=== PATIENT | female | born 1945 | race Caucasian/White ===

== ENCOUNTER 2016-07-28 20:54 | Observation (INO) ==
[2016-07-28] MEDS ORDERED: 0.9 % Sodium Chloride 1,000 ML IVC ONE (21:16)
[2016-07-28 21:44] LABS: Basophils % 0.2 %; Eosinophils % 0.2 %; Hematocrit 45.7 % (35.3-44.9); Hemoglobin 14.8 g/dL (11.5-15.4); Immature Granulocytes % 0.5 % (0-4); Lymphocytes # 1.3 K/mcL (0.6-4.6); Lymphocytes % 9.9 %; Mean Corpuscular HGB Conc 32.4 g/dL (31.6-35.5); Mean Corpuscular Hemoglobin 28.2 pg (28.0-33.3); Mean Platelet Volume 9.2 fL (9.4-12.4); Monocytes # 1.1 K/mcL (0.0-1.3); Monocytes % 8.6 %; Neutrophils # 10.5 K/mcL (1.6-8.9); Platelet Count 135 K/mcL (140-400); Red Blood Count 5.25 M/mcL (3.82-4.97); Segmented Neutrophils % 80.6 %
--- NOTE | 2016-07-28 21:57 | Emergency Department Note ---
Disposition Clinical Impression: Hematochezia, Colitis, Abdominal aneurysm Disposition: Admitted As Inpatient Referrals: Unassigned,Provider [Non-Partnered Physician] - Forms: ED Satisfaction Letter General Adult HPI - General Chief complaint: ED GI Bleed Stated complaint: rectum bleeding Time Seen by Provider: 07/28/16 21:07 Source: patient Limitations: no limitations Nursing Notes Reviewed: Yes Vital Signs Reviewed: Yes - History of Present Illness Pain Scale: 9 - Related Data Home Medications Medication Instructions Recorded Confirmed Diltiazem HCl [Cardizem] 60 mg PO BID 02/13/15 07/28/16 Lisinopril [Zestril] 20 mg PO QPM 02/13/15 07/28/16 Metoprolol Succinate 100 mg PO QPM 02/13/15 07/28/16 clonazePAM [Klonopin] 2 mg PO HS 02/13/15 07/28/16 Amitriptyline [Elavil] 20 - 30 mg PO HS 07/28/16 07/28/16 Aspirin Enteric Coated [Aspirin EC] 81 mg PO DAILY 07/28/16 07/28/16 Docusate [Colace] 100 mg PO DAILY PRN 07/28/16 07/28/16 HYDROcodone/Acet 10/325 mg [[place] 2 tab PO BID PRN 07/28/16 07/28/16 10-325 mg] Lactose-Reduced Food [Ensure Plus] 1 bottle PO BID 07/28/16 07/28/16 Allergies Allergy/AdvReac Type Severity Reaction Status Date / Time codeine Allergy Agitated Verified 07/28/16 20:59 egg Allergy Hives Verified 07/28/16 20:59 bacitracin AdvReac Rash Verified 07/28/16 20:59 [From Neosporin Plus] gabapentin AdvReac Vomiting Verified 07/28/16 20:59 Neomycin AdvReac Rash Verified 07/28/16 20:59 [From Neosporin Plus] polymyxin B AdvReac Rash Verified 07/28/16 20:59 [From Neosporin Plus] Pramoxine AdvReac Rash Verified 07/28/16 20:59 [From Neosporin Plus] Past Medical History - Past Medical History Medical history: Reports: aortic aneurysm, COPD, coronary artery disease, hypertension, peripheral artery disease, other Surgical history: Reports: other Psychiatric history: Reports: anxiety 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 history - Social History Smoking Status: Current every day smoker Smokeless Tobacco Status: No Alcohol use: Reports: none Drug use: Reports: none Physical Exam - General Limitations: no limitations General appearance: alert Course Vital Signs Temperature 98.4 F 07/28/16 20:59 Pulse Rate 97 07/28/16 20:59 Respiratory Rate 20 07/28/16 20:59 Blood Pressure 205/115 07/28/16 20:59 O2 Sat by Pulse Oximetry 91 07/28/16 20:59 Temperature 98.4 F 07/28/16 20:59 Pulse Rate 99 07/29/16 00:04 Respiratory Rate 14 07/29/16 00:04 Blood Pressure 179/98 07/29/16 00:04 O2 Sat by Pulse Oximetry 95 07/29/16 00:04 Oxygen Delivery Oxygen Delivery Room Air Medical Decision Making - MDM Narrative Medical decision making narrative: I examined this patient and my medical decision-making was reviewed with the UNDERWRITING SUPPORT SPECIALIST/PA/Advanced Practice Nurse/Resident Physician. I agree with the documented findings, disposition and treatment plan as described except to the extent set forth below. Patient was seen today by Dr. Garcia and myself, I agree with his evaluation and management plan, I supervised the care of the patient throughout the stay. She has had a long history of constipation secondary to opiates. She has been constipated a lot point where she had actually digitally disimpact herself. She states that last night she had a bowel movement that felt like she was "passing a cactus. And she noted blood on the stool and it continued today she had some cramping in her abnormal little bit of nausea but no vomiting. She has never had a history of bowel obstruction but she has had multiple surgeries which are vascular nature of her abdomen. She had a large bowel movement here which had gross blood in it. No signs of hemorrhoids. Waiting on labs we will CT her abdomen raw silk grader of fluids and try to get her feeling better most likely she will need admission. She is in agreement with this plan. 2212 hrs.: Patient had an EKG showed a sinus rhythm, rate 95, QRS is 114, QTc is 43, has interventricular conduction delay but no signs of acute ischemia no ectopy, compared this with an old EKG that was done earlier in this year and shows no changes except for rate. 2237 hrs.: Patient's labs are back she has not anemic. Were waiting on her CT of her abdomen. She is in agreement with this plan. Abdomen/Pelvis CT 07/28/16 21:16 IMPRESSION: 1. Circumferential wall thickening with submucosal edema of the majority of the sigmoid and ascending colon. The remaining colon is remarkable. Findings are nonspecific, could represent an infectious, inflammatory or ischemic colitis. 2. Moderate left renal pelviectasis is likely secondary to markedly distended bladder. 3. 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 RECOMMENDATIONS: Managing Abdominal Aortic Aneurysms 2.6-2.9 cm: 5 year follow up. 3.0-3.4 cm: 3 year follow up 3.5-3.9 cm: 1 year follow up. 4.0-4.4 cm: 1 year follow up. Recommend vascular consultation. 4.5-5.4 cm: 6 month follow up. Recommend vascular consultation. Greater than or equal to 5.5 cm: Referral to vascular surgeon. Reference: Saima et al. The care of patients with an abdominal aortic aneurysm: The Society of Vascular Surgery practice guidelines. Journal of Vascular Surgery. Vol 50, Number 85. Tonio et al. Managing Incidental Findings on Abdominal and Pelvic CT and MRI, Part 2: White Paper of the ACR Incidental Findings Committee II on Vascular Findings. J Am Keturah Radiol 2013;10:789-794 D/ / Socrates Mcintosh MD / Socrates Mcintosh MD Interpreting Provider: Socrates Mcintosh MD 2350 hrs.: Patient has colitis on CT nothing that acute. With her GI bleeding and her previous history would like to bring her into the hospital, she is in agreement. She is stable at this time whenever typed and screened. Her critical care time excluding any separately billable procedures is 40 minutes. Paging hospitals for admission. 0004 hours: Hospitalist accepts patient for admission. Patient's in agreement with the plan. She is stable at this time. - Lab Data Result diagrams: 07/28/16 21:36 07/28/16 21:36 Lab Results 07/28/16 07/28/16 07/28/16 Range/Units 21:36 21:36 21:36 WBC 13.0 H (4.3-11.1) K/mcL RBC 5.25 H (3.82-4.97) M/mcL Hgb 14.8 (11.5-15.4) g/dL Hct 45.7 H (35.3-44.9) % MCV 87.0 (83.0-100.0) fL MCH 28.2 (28.0-33.3) pg MCHC 32.4 (31.6-35.5) g/dL RDW 15.0 H (11.5-14.5) % Plt Count 135 L (140-400) K/mcL MPV 9.2 L (9.4-12.4) fL Immature Gran % 0.5 (0-4) % Seg Neutrophils % 80.6 % Lymphocytes % 9.9 % Monocytes % 8.6 % Eosinophils % 0.2 % Basophils % 0.2 % Neutrophils # 10.5 H (1.6-8.9) K/mcL Lymphocytes # 1.3 (0.6-4.6) K/mcL Monocytes # 1.1 (0.0-1.3) K/mcL Eosinophils # 0.0 (0.0-0.6) K/mcL Basophils # 0.0 (0.0-0.2) K/mcL Sodium 140 (136-145) mEq/L Potassium 3.5 (3.5-4.5) mEq/L Chloride 100 (98-109) mEq/L Carbon Dioxide 31 H (19-29) mEq/L BUN 25 H (7-20) mg/dL Creatinine 1.12 H (0.57-1.11) mg/dL Est GFR ( Amer) 58 L (> 60) Est GFR (Non-Af Amer) 48 L (> 60) BUN/Creatinine Ratio 22 (6-26) Glucose 92 (70-99) mg/dL Calculated Osmolality 294 (280-300) Calcium 9.5 (8.6-10.8) mg/dL Total Bilirubin 0.5 (0.2-1.2) mg/dL Direct Bilirubin 0.2 (0.0-0.5) mg/dL Indirect Bilirubin 0.3 (0.0-1.2) mg/dL AST 20 (5-34) Units/L ALT 24 (0-55) Units/L Alkaline Phosphatase 88 (38-126) Units/L Serum Total Protein 6.8 (6.0-8.3) g/dL Albumin 3.3 L (3.5-5.0) g/dL Globulin 3.5 (2.4-3.5) g/dL Albumin/Globulin Ratio 0.9 L (1.1-2.2) Blood Type O POSITIVE Antibody Screen NEGATIVE
[2016-07-28 21:58] LABS: Calcium 9.5 mg/dL (8.6-10.8); Potassium 3.5 mEq/L (3.5-4.5)
[2016-07-28 22:10] LABS: Albumin 3.3 g/dL (3.5-5.0); Albumin/Globulin Ratio 0.9 (1.1-2.2); Bilirubin,Direct 0.2 mg/dL (0.0-0.5); Bilirubin,Indirect 0.3 mg/dL (0.0-1.2); Bilirubin,Total 0.5 mg/dL (0.2-1.2); Globulin 3.5 g/dL (2.4-3.5); Total Protein 6.8 g/dL (6.0-8.3)
--- NOTE | 2016-07-28 23:45 | Emergency Department Note ---
Disposition Clinical Impression: Hematochezia, Colitis, Abdominal aneurysm Disposition: Admitted As Inpatient Referrals: Unassigned,Provider [Non-Partnered Physician] - Forms: ED Satisfaction Letter GI Bleed HPI - General Chief complaint: ED GI Bleed Stated complaint: rectum bleeding Time Seen by Provider: 07/28/16 21:07 Source: patient Limitations: no limitations Nursing Notes Reviewed: Yes Vital Signs Reviewed: Yes - History of Present Illness HPI Narrative: Ms. Blanco, a 71yo female, presents from home via EMS with concerns regarding rectal bleeding. Patient had a hard bowel movement last night. This afternoon , she had bright red blood in her bowel movement. Initially described as completely blood without stool. Subsequently had loose stool with blood intermixed. Associated with nausea, chills, abdominal cramping. Patient has no recent antibiotic use, no recent travel. PMH: Abdominal aneurysm-surgically corrected. Hypertension, COPD. Medications do not include any anticoagulant. Antiplatelet = aspirin 81 mg by mouth daily. ROS: Positive: Hematochezia, chills, abdominal cramping Negative: Fever, dyspnea, chest pains, diaphoresis, dysuria - Related Data Home Medications Medication Instructions Recorded Confirmed Diltiazem HCl [Cardizem] 60 mg PO BID 02/13/15 07/28/16 Lisinopril [Zestril] 20 mg PO QPM 02/13/15 07/28/16 Metoprolol Succinate 100 mg PO QPM 02/13/15 07/28/16 clonazePAM [Klonopin] 2 mg PO HS 02/13/15 07/28/16 Amitriptyline [Elavil] 20 - 30 mg PO HS 07/28/16 07/28/16 Aspirin Enteric Coated [Aspirin EC] 81 mg PO DAILY 07/28/16 07/28/16 Docusate [Colace] 100 mg PO DAILY PRN 07/28/16 07/28/16 HYDROcodone/Acet 10/325 mg [[place] 2 tab PO BID PRN 07/28/16 07/28/16 10-325 mg] Lactose-Reduced Food [Ensure Plus] 1 bottle PO BID 07/28/16 07/28/16 Allergies Allergy/AdvReac Type Severity Reaction Status Date / Time codeine Allergy Agitated Verified 07/28/16 20:59 egg Allergy Hives Verified 07/28/16 20:59 bacitracin AdvReac Rash Verified 07/28/16 20:59 [From Neosporin Plus] gabapentin AdvReac Vomiting Verified 07/28/16 20:59 Neomycin AdvReac Rash Verified 07/28/16 20:59 [From Neosporin Plus] polymyxin B AdvReac Rash Verified 07/28/16 20:59 [From Neosporin Plus] Pramoxine AdvReac Rash Verified 07/28/16 20:59 [From Neosporin Plus] All systems ED: reviewed and negative except as stated. 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 She appears frail and cachectic. HEENT: No facial asymmetry. Head is normocephalic and atraumatic. PERRLA, EOMI. trachea midline. Cardiovascular: Heart regular rate and rhythm without clicks, rubs, gallops, or murmurs. No JVD. PMI nondisplaced. No pedal edema. Bilateral radial and posterior tibial pulses 2/4. Respiratory: Symmetric chest rise with good respiratory effort. Bilateral breath sounds are clear without wheezing, crackles, or rhonchi. Abdomen: Bowel sounds present normoactive x-4 quadrants. Abdomen is soft, nondistended, and nontender. Rectal: No external hemorrhoids. Manoj blood visible in patient's stool. FOBT positive. Psych: Patient's affect is appropriate for situation. - General Limitations: no limitations General appearance: alert Course Course Narrative: Patient has a history of chronic opiod constipation resistant to multiple medications. She has a painless large hard bowel movement after which she had hematochezia. Initial concern is focused on GI bleed. Upper GI bleed unlikely as blood is grossly red. Does not clinically smell to be C. difficile. Patient 's vital signs are stable and she is in no acute distress this time. CT abdomen and pelvis concerning for colitis. Also shows a abdominal aneurysm which is known to the patient. Laboratory work shows mild leukocytosis. No anemia or less likely drainages. No evidence of elevated liver or pancreatic enzymes. We will admit the patient to the hospitalist for continued evaluation and management. 00:05 Spoke with admitting hospitalist, Dr. Mccall, who agrees to accept the patient. Ms. Blanco remains stable and comfortable. Vital Signs Temperature 98.4 F 07/28/16 20:59 Pulse Rate 97 07/28/16 20:59 Respiratory Rate 20 07/28/16 20:59 Blood Pressure 205/115 07/28/16 20:59 O2 Sat by Pulse Oximetry 91 07/28/16 20:59 Temperature 98.4 F 07/28/16 20:59 Pulse Rate 97 07/28/16 20:59 Respiratory Rate 20 07/28/16 20:59 Blood Pressure 205/115 07/28/16 20:59 O2 Sat by Pulse Oximetry 95 07/28/16 22:14 Oxygen Delivery Oxygen Delivery Room Air GI Bleed - Lab Data Result diagrams: 07/28/16 21:36 07/28/16 21:36 Lab Results 07/28/16 07/28/16 07/28/16 Range/Units 21:36 21:36 21:36 WBC 13.0 H (4.3-11.1) K/mcL RBC 5.25 H (3.82-4.97) M/mcL Hgb 14.8 (11.5-15.4) g/dL Hct 45.7 H (35.3-44.9) % MCV 87.0 (83.0-100.0) fL MCH 28.2 (28.0-33.3) pg MCHC 32.4 (31.6-35.5) g/dL RDW 15.0 H (11.5-14.5) % Plt Count 135 L (140-400) K/mcL MPV 9.2 L (9.4-12.4) fL Immature Gran % 0.5 (0-4) % Seg Neutrophils % 80.6 % Lymphocytes % 9.9 % Monocytes % 8.6 % Eosinophils % 0.2 % Basophils % 0.2 % Neutrophils # 10.5 H (1.6-8.9) K/mcL Lymphocytes # 1.3 (0.6-4.6) K/mcL Monocytes # 1.1 (0.0-1.3) K/mcL Eosinophils # 0.0 (0.0-0.6) K/mcL Basophils # 0.0 (0.0-0.2) K/mcL Sodium 140 (136-145) mEq/L Potassium 3.5 (3.5-4.5) mEq/L Chloride 100 (98-109) mEq/L Carbon Dioxide 31 H (19-29) mEq/L BUN 25 H (7-20) mg/dL Creatinine 1.12 H (0.57-1.11) mg/dL Est GFR ( Amer) 58 L (> 60) Est GFR (Non-Af Amer) 48 L (> 60) BUN/Creatinine Ratio 22 (6-26) Glucose 92 (70-99) mg/dL Calculated Osmolality 294 (280-300) Calcium 9.5 (8.6-10.8) mg/dL Total Bilirubin 0.5 (0.2-1.2) mg/dL Direct Bilirubin 0.2 (0.0-0.5) mg/dL Indirect Bilirubin 0.3 (0.0-1.2) mg/dL AST 20 (5-34) Units/L ALT 24 (0-55) Units/L Alkaline Phosphatase 88 (38-126) Units/L Serum Total Protein 6.8 (6.0-8.3) g/dL Albumin 3.3 L (3.5-5.0) g/dL Globulin 3.5 (2.4-3.5) g/dL Albumin/Globulin Ratio 0.9 L (1.1-2.2) Blood Type O POSITIVE Antibody Screen NEGATIVE
[2016-07-29] MEDS ORDERED: Naloxone 0.4 MG/ML INJ IVP PRN (01:50)
[2016-07-29] MEDS ORDERED: *HR* HYDROcodone/Acet 10/325 mg TABLET PO PRN (01:56)
--- NOTE | 2016-07-29 01:59 | Internal Med History&Physical ---
Date of Encounter: 07/29/16 Time of Encounter: 01:58 Assessment and Plan (1) Hematochezia Current visit: Yes Status: Acute Possibly related to colitis versus diverticular bleed. Hold aspirin. Monitor H& H. GI consult for further advice. (2) Colitis Current visit: Yes Status: Acute Will check lactate level, c.diff toxin, stool culture. Consider antibiotics ( however pt does not have symptoms of diarrhea) (3) Abdominal aneurysm Current visit: Yes Status: Chronic Monitor (4) Hypertension Current visit: Yes Status: Chronic Resume home dose of antihypertensives Qualifiers: Hypertension type: essential hypertension Qualified Code(s): I10 - Essential (primary) hypertension (5) Nicotine dependence Current visit: Yes Status: Chronic Counseled for smoking cessation. Nicotine patches Qualifiers: Nicotine product type: cigarettes Substance use status: unspecified nicotine-induced disorder Qualified Code(s): F17.219 - Nicotine dependence, cigarettes, with unspecified nicotine-induced disorders Internal Medicine - H&P: HPI Chief complaint: Rectal bleeding Admitted From: Emergency Dept Plans for Post Hospital Care: Home History of present illness: Ms. Blanco is a 71 year old female With past medical h/o aortic aneurysm, COPD, coronary artery disease, hypertension, peripheral artery disease. Pt reports that she has been constipated, and tool a laxative 2 days ago. Yesterday she had a large bowel movement, followed by soft BM and later had bright red blood in the BM. She is not sure about clots. She denies melena, hematemesis, nausea, vomiting. She reports some cramping abdominal pain, associated with the bowel movements. She denies shortness of breath, chest pain, fever, chills, dizziness , lightheadedness. She was evaluated in the emergency department and rectal exam showed no hemorrhoids and rosa maria blood was visible in pts stool. She is admitted to the hospitalist service for further management. Pt reports that she did not have prior colonoscopies (she says that she cant have it because of her prior surgeries on the abdomen.) Past Med Surg Social Fam HX - Past Medical History Medical history: aortic aneurysm, COPD, coronary artery disease, hypertension, peripheral artery disease, other Psychiatric history: anxiety - Past Surgical History Surgical History: appendectomy, orthopedic, other, other, vascular surgery - Social History Smoking Status: Current every day smoker Packs per day: 3/4 Smokeless Tobacco Status: No Alcohol use: none Drug use: none - Family History Mother Age: 88 Hx Family Cancer: Yes Hx Family GI Disorders: Yes Father Age: 92 Hx Family Cardiac Disorders: Yes Internal Medicine - H&P: Meds Diltiazem HCl [Cardizem] 60 mg PO BID 02/13/15 [History] Lisinopril [Zestril] 20 mg PO QPM 02/13/15 [History] Metoprolol Succinate 100 mg PO QPM 02/13/15 [History] clonazePAM [Klonopin] 2 mg PO HS 02/13/15 [History] Amitriptyline [Elavil] 20 - 30 mg PO HS 07/28/16 [History] Aspirin Enteric Coated [Aspirin EC] 81 mg PO DAILY 07/28/16 [History] Docusate [Colace] 100 mg PO DAILY PRN 07/28/16 [History] HYDROcodone/Acet 10/325 mg [[place] 10-325 mg] 2 tab PO BID PRN 07/28/16 [History] Lactose-Reduced Food [Ensure Plus] 1 bottle PO BID 07/28/16 [History] Allergies codeine Allergy (Verified 07/28/16 20:59) Agitated egg Allergy (Verified 07/28/16 20:59) Hives bacitracin [From Neosporin Plus] Adverse Reaction (Verified 07/28/16 20:59) Rash gabapentin Adverse Reaction (Verified 07/28/16 20:59) Vomiting Neomycin [From Neosporin Plus] Adverse Reaction (Verified 07/28/16 20:59) Rash polymyxin B [From Neosporin Plus] Adverse Reaction (Verified 07/28/16 20:59) Rash Pramoxine [From Neosporin Plus] Adverse Reaction (Verified 07/28/16 20:59) Rash All Systems PM: A 10-system review of systems was performed and is negative for pertinent findings except as documented above in the HPI. - Constitutional Vitals: Temp Pulse Resp BP Pulse Ox 99.3 F 102 18 192/108 93 07/29/16 01:04 07/29/16 01:04 07/29/16 01:04 07/29/16 01:04 07/29/16 01:04 Exam: General: Not in acute distress at the time of my evaluation HEENT: Oral mucosa is moist. No conjunctival palor or scleral icterus Neck: No obvious neck swellings Lungs: Clear to auscultation Cardiac: Regular rate and rhythm. Abdomen: Soft, non tender. Bowel sounds present Genitourinary: No pastor catheter Neurological: Alert and oriented. No gross localizing deficits Psych: Not aggressive or agitated Extremities: no significant leg edema Skin: No generalized rash Internal Med - H&P Results - Labs CBC & Chem 7: 07/29/16 02:53 07/29/16 02:53 - Impressions ITS Impressions Abdomen/Pelvis CT 07/28/16 21:16 IMPRESSION: 1. Circumferential wall thickening with submucosal edema of the majority of the sigmoid and ascending colon. The remaining colon is unremarkable. Findings are nonspecific, could represent an infectious, inflammatory or ischemic colitis. 2. Moderate left renal pelviectasis is likely secondary to markedly distended bladder. 3. Stable chronic abdominal, including ectasia of the descending thoracic aorta of 2.6 cm and fusiform aneurysmal dilatation of the right internal common iliac artery of 3 cm. RECOMMENDATIONS: Managing Abdominal Aortic Aneurysms 2.6-2.9 cm: 5 year follow up. 3.0-3.4 cm: 3 year follow up 3.5-3.9 cm: 1 year follow up. 4.0-4.4 cm: 1 year follow up. Recommend vascular consultation. 4.5-5.4 cm: 6 month follow up. Recommend vascular consultation. Greater than or equal to 5.5 cm: Referral to vascular surgeon. Reference: Saima et al. The care of patients with an abdominal aortic aneurysm: The Society of Vascular Surgery practice guidelines. Journal of Vascular Surgery. Vol 50, Number 85. Tonio et al. Managing Incidental Findings on Abdominal and Pelvic CT and MRI, Part 2: White Paper of the ACR Incidental Findings Committee II on Vascular Findings. J Am Keturah Radiol 2013;10:789-794 D/ / 07/29/2016 07:08:24 Socrates Mcintosh MD / nano Interpreting Provider: Socrates Mcintosh MD
[2016-07-29] MEDS ORDERED: 0.9 % Sodium Chloride 1,000 ML IVC SCH (02:00)
[2016-07-29] MEDS: clonazePAM 1 MG TABLET PO SCH ×2 (02:10→21:41)
[2016-07-29] MEDS: Metoprolol XL (24 HR) Succ 50 MG TAB.ER.24H PO SCH ×2 (02:10→17:48)
[2016-07-29] MEDS: Lisinopril 20 MG TABLET PO SCH ×2 (02:11→17:48)
[2016-07-29 03:00] LABS: Basophils % 0.1 %; Eosinophils % 0.1 %; Hematocrit 42.5 % (35.3-44.9); Immature Granulocytes % 0.4 % (0-4); Lymphocytes # 1.1 K/mcL (0.6-4.6); Lymphocytes % 8.2 %; Mean Corpuscular HGB Conc 32.9 g/dL (31.6-35.5); Mean Corpuscular Hemoglobin 28.4 pg (28.0-33.3); Mean Corpuscular Volume 86.2 fL (83.0-100.0); Mean Platelet Volume 9.2 fL (9.4-12.4); Monocytes # 0.9 K/mcL (0.0-1.3); Neutrophils # 11.3 K/mcL (1.6-8.9); Platelet Count 125 K/mcL (140-400); Red Blood Count 4.93 M/mcL (3.82-4.97); Red Cell Distribution Width 15.1 % (11.5-14.5); Segmented Neutrophils % 84.2 %
[2016-07-29 03:06] LABS: INR 1.2; Prothrombin Time 12.7 Seconds (9.4-12.1)
[2016-07-29 03:08] LABS: Activated Partial Thrombo Time 27.6 Seconds (26.0-36.0)
[2016-07-29 03:13] LABS: BUN/Creatinine Ratio 20 (6-26); Blood Urea Nitrogen 19 mg/dL (7-20); Calcium 8.7 mg/dL (8.6-10.8); Carbon Dioxide 27 mEq/L (19-29); Chloride 103 mEq/L (98-109); Glucose 126 mg/dL (70-99); Osmolality,Calculated 292 (280-300); Potassium 3.5 mEq/L (3.5-4.5); Sodium 139 mEq/L (136-145); eGFR For African Americans > 60 (> 60); eGFR For Non-African Americans 57 (> 60)
[2016-07-29] MEDS: dilTIAZem HCl 60 MG TABLET PO SCH ×2 (08:35→21:40)
[2016-07-29 10:40] LABS: Hematocrit 41.3 % (35.3-44.9); Hemoglobin 13.4 g/dL (11.5-15.4)
[2016-07-29] MEDS: Sennosides/Docusate Sodium TABLET PO SCH ×2 (11:20→21:40)
[2016-07-29] MEDS: Nicotine 21 MG PATCH.TD24 TD SCH (11:21)
--- NOTE | 2016-07-29 11:46 | Gastroenterology Consult Note ---
<Danilo Paula - Last Filed: 07/29/16 11:43> Date of Encounter: 07/29/16 Time of Encounter: 11:05 - Assessment and plan (1) Colitis Current Visit: Yes Status: Acute Assessment and plan: CT A/P with circumferential wall thickening with submucosal edema the majority of the sigmoid and descending colon, the remaining colon is unremarkable. These findings are nonspecific and could represent an infectious, inflammatory, or ischemic colitis. Check stool studies. Plan for colonoscopy in 6-8 weeks as outpatient. Continue symptomatic treatment. (2) Hematochezia Current Visit: Yes Status: Acute Assessment and plan: Could be due to colitis. Plan for colonoscopy in 6-8 weeks as outpatient. (3) Abdominal aneurysm Current Visit: Yes Status: Chronic - Time Spent With Patient Total time spent is greater than 50% in coordination of care (as documented) at patient's floor/unit and/or counseling patient: GI History of Present Illness - Data of Consult Patient: new to practice Consult date: 07/29/16 Requesting Physician: Mitchell Zelaya - Consult Narrative Reason for consult: hematochezia, colitis History of present illness: Ms. Blanco is a 71 year old female with PMHx of aortic aneurysm, chronic opioid constipation, COPD, CAD, HTN, peripheral artery disease who presented to the ED with concerns regarding rectal bleeding. The day before admission she had a hard bowel movement and then the day of admission she noticed bright red blood in her bowel movement. Initially she described this as completely blood without stool. This was associated with nausea and abdominal cramping. She denied fever , SOB, chest pain, melena. CT A/P concerning for colitis. Procedures: EGD 07/11/2011 Dr. Mancera: Gastritis, duodenitis NSAIDs: ASA Anticoagulation: None Past Med Surg Social Fam HX - Past Medical History Medical history: aortic aneurysm, COPD, coronary artery disease, hypertension, peripheral artery disease, other Psychiatric history: anxiety - Past Surgical History Surgical History: appendectomy, orthopedic, other, other, vascular surgery - Social History Smoking Status: Current every day smoker Packs per day: 3/4 Smokeless Tobacco Status: No Alcohol use: none Drug use: none - Family History Mother Age: 88 Hx Family Cancer: Yes Hx Family GI Disorders: Yes Father Age: 92 Hx Family Cardiac Disorders: Yes - Gastrointestinal Gastrointestinal: Present: as per HPI - Constitutional Constitutional: as per HPI - EENT Eyes: as per HPI Ears: Present: as per HPI Nose, mouth and throat: Present: as per HPI - Cardiovascular Cardiovascular ROS: Present: as per HPI - Respiratory Respiratory IM: Present: as per HPI - Genitourinary Genitourinary: Absent: change in color, Urinary frequency - Neurological ROS Neurological GI: Present: as per HPI - Hematologic/Lymphatic Hematologic/Lymphatic pediatric: Present: as per HPI - Musculoskeletal Musculoskeletal ROS GI: Present: as per HPI - Integumentary Integumentary GI: Present: as per HPI - Psychiatric ROS Psychiatric GI: Present: as per HPI - Endocrine Endocrine IM: Present: as per HPI - Constitutional Vitals: Temp Pulse Resp BP Pulse Ox 99.1 F 91 18 145/66 93 07/29/16 10:45 07/29/16 10:45 07/29/16 10:45 07/29/16 10:45 07/29/16 10:45 General appearance: Present: cooperative, A&O X 3, no acute distress, answers questions appropriately - Head Head exam: Present: atraumatic, normocephalic - Eye Eye exam: Present: normal appearance, sclera anicteric - ENT ENT exam: Present: mucous membranes dry - Neck Neck exam general surgery: Present: normal inspection, trachea midline - Respiratory Respiratory exam: Present: decreased breath sounds, CTAB. Absent: rales, rhonchi - Cardiovascular Cardiovascular exam: Present: RRR, +S1, +S2 - GI/Abdominal GI/Abdominal exam: Present: soft, tenderness (Left sided pain with palpation), no peritoneal signs. Absent: distended, firm, guarding - Rectal Rectal exam: Present: deferred - Extremities Exam Extremities exam: Present: warm - Neurological Exam Neurological exam: Present: no focal deficits - Psychiatric Psychiatric exam: Present: normal affect, normal mood - Skin Skin exam: Present: dry, intact, normal color, warm Results - Labs CBC & Chem 7: 07/29/16 10:21 07/29/16 02:53 Labs: Last Result Calcium 8.7 mg/dL (8.6-10.8) 07/29/16 02:53 Entire Visit Hgb 13.4 g/dL (11.5-15.4) 07/29/16 10:21 Hct 41.3 % (35.3-44.9) 07/29/16 10:21 PT 12.7 Seconds (9.4-12.1) H 07/29/16 02:53 Total Bilirubin 0.5 mg/dL (0.2-1.2) 07/28/16 21:36 AST 20 Units/L (5-34) 07/28/16 21:36 ALT 24 Units/L (0-55) 07/28/16 21:36 - ABG ABG results: PT/INR, D-dimer PT 12.7 Seconds (9.4-12.1) H 07/29/16 02:53 Consult Discharge Plan - Plan Referrals: Angel Martinez MD [Primary Care Provider] - 08/08/16 1:20 pm <Fadi Ontiveros - Last Filed: 07/29/16 15:13> Date of Encounter: 07/29/16 - Time Spent With Patient Total time spent is greater than 50% in coordination of care (as documented) at patient's floor/unit and/or counseling patient: GI History of Present Illness - Data of Consult Requesting Physician: Mitchell Zelaya - Consult Narrative History of present illness: Ms. Blanco is a 71 year old female - Constitutional Vitals: Temp Pulse Resp BP Pulse Ox 99.1 F 91 18 145/66 93 07/29/16 10:45 07/29/16 10:45 07/29/16 10:45 07/29/16 10:45 07/29/16 10:45 Results - Labs CBC & Chem 7: 07/29/16 10:21 07/29/16 02:53 Labs: Last Result Calcium 8.7 mg/dL (8.6-10.8) 07/29/16 02:53 Entire Visit Hgb 13.4 g/dL (11.5-15.4) 07/29/16 10:21 Hct 41.3 % (35.3-44.9) 07/29/16 10:21 PT 12.7 Seconds (9.4-12.1) H 07/29/16 02:53 Total Bilirubin 0.5 mg/dL (0.2-1.2) 07/28/16 21:36 AST 20 Units/L (5-34) 07/28/16 21:36 ALT 24 Units/L (0-55) 07/28/16 21:36 - ABG ABG results: PT/INR, D-dimer PT 12.7 Seconds (9.4-12.1) H 07/29/16 02:53 - Attending Attestation I examined this patient and my medical decision-making was reviewed with the POST SPLITTER/PA/Advanced Practice Nurse/Resident Physician. I agree with the documented findings, disposition and treatment plan as described except to the extent set forth below. Pt finding concerning for ischemic colitis. Supportive care. colon out pt 6-8 weeks
[2016-07-29] MEDS: 0.9 % Sodium Chloride 1,000 ML IVC SCH ×2 (12:10→15:30)
[2016-07-29] MEDS: MetroNIDAZOLE 500 MG/100 ML 500 MG/100 ML BAG IVPB SCH ×2 (15:32→23:57)
[2016-07-29 15:59] LABS: Hematocrit 41.7 % (35.3-44.9); Hemoglobin 13.2 g/dL (11.5-15.4)
[2016-07-29 21:39] LABS: Hematocrit 38.4 % (35.3-44.9); Hemoglobin 12.6 g/dL (11.5-15.4)
[2016-07-30 04:27] LABS: Adenovirus F 40/41 PCR Not detected (Not detect); Astrovirus PCR Not detected (Not detect); C.difficile Toxin A/B by PCR Not detected (Not detect); Campylobacter by PCR Not detected (Not detect); Cryptosporidium by PCR Not detected (Not detect); Cyclospora cayetanensis PCR Not detected (Not detect); E. coli O157 by PCR Not detected (Not detect); Entamoeba histolytica PCR Not detected (Not detect); Enteroaggregative E.coli(EAEC) Not detected (Not detect); Enteropathogenic E.coli(EPEC) ***DETECTED*** (Not detect); Enterotoxigenic E.coli (ETEC) Not detected (Not detect); Giardia lamblia PCR Not detected (Not detect); Norovirus GI/GII PCR Not detected (Not detect); Plesiomonas shigelloides PCR Not detected (Not detect); Rotavirus A PCR Not detected (Not detect); Salmonella PCR Not detected (Not detect); Sapovirus PCR Not detected (Not detect); Shig/EnteroinvasiveE coli EIEC Not detected (Not detect); Shigalike tox-prod E coli STEC Not detected (Not detect); Vibrio PCR Not detected (Not detect); Vibrio cholerae PCR Not detected (Not detect); Yersinia enterocolitica PCR Not detected (Not detect)
[2016-07-30] MEDS: 0.9 % Sodium Chloride 1,000 ML IVC SCH (04:48)
[2016-07-30 06:21] LABS: Basophils % 0.2 %; Eosinophils # 0.1 K/mcL (0.0-0.6); Eosinophils % 1.2 %; Hematocrit 39.8 % (35.3-44.9); Hemoglobin 12.4 g/dL (11.5-15.4); Immature Granulocytes % 0.4 % (0-4); Lymphocytes # 0.9 K/mcL (0.6-4.6); Lymphocytes % 10.6 %; Mean Corpuscular HGB Conc 31.2 g/dL (31.6-35.5); Mean Corpuscular Hemoglobin 27.7 pg (28.0-33.3); Mean Platelet Volume 9.4 fL (9.4-12.4); Monocytes # 0.5 K/mcL (0.0-1.3); Monocytes % 5.5 %; Neutrophils # 6.8 K/mcL (1.6-8.9); Platelet Count 106 K/mcL (140-400); Red Blood Count 4.47 M/mcL (3.82-4.97); Segmented Neutrophils % 82.1 %
[2016-07-30 06:36] LABS: BUN/Creatinine Ratio 18 (6-26); Blood Urea Nitrogen 15 mg/dL (7-20); Calcium 8.4 mg/dL (8.6-10.8); Carbon Dioxide 25 mEq/L (19-29); Chloride 108 mEq/L (98-109); Glucose 66 mg/dL (70-99); Osmolality,Calculated 289 (280-300); Potassium 3.3 mEq/L (3.5-4.5); Sodium 140 mEq/L (136-145); eGFR For African Americans > 60 (> 60); eGFR For Non-African Americans > 60 (> 60)
[2016-07-30] MEDS: dilTIAZem HCl 60 MG TABLET PO SCH (07:41)
[2016-07-30] MEDS: Sennosides/Docusate Sodium TABLET PO SCH (07:41)
[2016-07-30] MEDS: MetroNIDAZOLE 500 MG/100 ML 500 MG/100 ML BAG IVPB SCH (07:41)
[2016-07-30] MEDS: Nicotine 21 MG PATCH.TD24 TD SCH (07:42)
[2016-07-30] MEDS ORDERED: Potassium Chloride Elixir 20 MEQ/15 ML UDC PO SCH (09:00)
--- NOTE | 2016-07-30 10:18 | Electrocardiograph Report ---
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
--- NOTE | 2016-07-30 10:58 | Discharge Summary ---
Date of Encounter: 07/30/16 Time of Encounter: 10:55 - Discharge Diagnosis (1) Colitis Priority: Primary Status: Acute (2) Hematochezia Priority: Secondary Status: Acute (3) Abdominal aneurysm Priority: Secondary Status: Chronic (4) Hypertension Priority: Secondary Status: Chronic Qualifiers: Hypertension type: essential hypertension Qualified Code(s): I10 - Essential (primary) hypertension - Discharge Medications Prescriptions: Ciprofloxacin [Cipro] 500 mg PO BID #8 tablet Sennosides/Docusate Sodium [Senna Plus] 1 each PO BID PRN #60 tablet PRN Reason: Constipation Home Medications: Diltiazem HCl [Cardizem] 60 mg PO BID 02/13/15 [History] Lisinopril [Zestril] 20 mg PO QPM 02/13/15 [History] Metoprolol Succinate 100 mg PO QPM 02/13/15 [History] clonazePAM [Klonopin] 2 mg PO HS 02/13/15 [History] Amitriptyline [Elavil] 20 - 30 mg PO HS 07/28/16 [History] Aspirin Enteric Coated [Aspirin EC] 81 mg PO DAILY 07/28/16 [History] HYDROcodone/Acet 10/325 mg [[place] 10-325 mg] 2 tab PO BID PRN 07/28/16 [History] Lactose-Reduced Food [Ensure Plus] 1 bottle PO BID 07/28/16 [History] Ciprofloxacin [Cipro] 500 mg PO BID #8 tablet 07/30/16 [Rx] Sennosides/Docusate Sodium [Senna Plus] 1 each PO BID PRN #60 tablet 07/30/16 [ Rx] Allergies/Adverse Reactions: Allergies codeine Allergy (Verified 07/28/16 20:59) Agitated egg Allergy (Verified 07/28/16 20:59) Hives bacitracin [From Neosporin Plus] Adverse Reaction (Verified 07/28/16 20:59) Rash gabapentin Adverse Reaction (Verified 07/28/16 20:59) Vomiting Neomycin [From Neosporin Plus] Adverse Reaction (Verified 07/28/16 20:59) Rash polymyxin B [From Neosporin Plus] Adverse Reaction (Verified 07/28/16 20:59) Rash Pramoxine [From Neosporin Plus] Adverse Reaction (Verified 07/28/16 20:59) Rash Date of admission: 07/29/16 00:15 Primary care physician: Angel Martinez MD Consults: 07/29/16 01:59 Consult to Gastroenterology [CONS] Routine Consulting Provider: Yong Nguyen Reason for Consult: Hematochizia; colitis Call Completed: No Discharging clinician: Mitchell Zelaya Anticipated date of discharge: 07/30/16 - Patient Status Disposition: Home, Self-Care Condition: Fair Functional capacity at discharge: independent ambulation Overall status at discharge: patient is back to baseline - Discharge Instructions Instructions: Chronic Hypertension (DC) Follow Up With: Angel Martinez MD [Primary Care Provider] - 08/08/16 1:20 pm Fadi Ontiveros MD [Partnered Physician] - - Diet and Activity Activity: resume usual activities as tolerated Diet: advance to your usual diet Interval History: Ms. Blanco is a 71 year old female with PMHx of aortic aneurysm, chronic opioid constipation, COPD, CAD, HTN, peripheral artery disease who presented to the ED with concerns regarding rectal bleeding. The day before admission she had a hard bowel movement and then the day of admission she noticed bright red blood in her bowel movement. This was associated with nausea and abdominal cramping. She denied fever, SOB, chest pain, melena. CT A/P concerning for colitis. Procedures: EGD 07/11/2011 Dr. Mancera: Gastritis, duodenitis NSAIDs: ASA Anticoagulation: None GI was consulted, she did not require any BT. her H/H is stable. her stool is positive for EPEC, GI recommended starting her on cipro for 5 days she has no more bleeding from her rectum, she is being dc today in stable condition and will f/u with GI in 2weeks. Hospital course: Ms. Blanco is a 71 year old female Time spent discussing smoking cessation with patient: more than 10 minutes - Time Spent with Patient Total time spent providing and/or coordinating discharge services: Greater than 30 minutes - Constitutional Vitals: Temp Pulse Resp BP Pulse Ox 97.8 F 81 18 193/96 94 07/30/16 07:31 07/30/16 07:31 07/30/16 07:31 07/30/16 07:31 07/30/16 08:11 General appearance: Present: A&O X 3, no acute distress Exam: - Head Head exam: Present: atraumatic, normocephalic - Eye Eye exam: Present: normal appearance, sclera anicteric - ENT ENT exam: Present: mucous membranes dry - Neck Neck exam general surgery: Present: normal inspection, trachea midline - Respiratory Respiratory exam: Present: decreased breath sounds, CTAB. Absent: rales, rhonchi - Cardiovascular Cardiovascular exam: Present: RRR, +S1, +S2 - GI/Abdominal GI/Abdominal exam: Present: soft, tenderness (Left sided pain with palpation), no peritoneal signs. Absent: distended, firm, guarding - Rectal Rectal exam: Present: deferred - Extremities Exam Extremities exam: Present: warm - Neurological Exam Neurological exam: Present: no focal deficits - Psychiatric Psychiatric exam: Present: normal affect, normal mood - Skin Skin exam: Present: dry, intact, normal color, warm
[2016-07-30 12:08] VITALS: BP 167/86
== END 2016-07-30 13:05 | disposition home or self-care (01) ==
LOC: 3ANU 20:54 → EMEROO 20:54 → 3ANU 07-29 00:37
PROVIDERS: ADMIT Internal Medicine Endocrinology, Diabetes & Metabolism; ATTEND Internal Medicine Endocrinology, Diabetes & Metabolism